=== PATIENT | female | born 1985 | race Caucasian/White ===

== ENCOUNTER 2021-07-05 09:11 | Emergency (ER) | payer BC, OTHER ==
--- NOTE | 2021-07-05 09:47 | EDM.PDOC ---
ED HPI GENERAL MEDICAL PROBLEM - General Chief Complaint: Upper Extremity Injury/Pain Stated Complaint: LT SHOULDER PAIN Time Seen by Provider: 07/05/21 09:31 Source of Information: Reports: Patient, RN Notes Reviewed - History of Present Illness INITIAL COMMENTS - FREE TEXT/NARRATIVE: 36 yr old female fell 2 or 3 days ago falling against back of L shoulder. Injured L leg as well. Leg is getting better but shoulder pain has worsened. No pain at rest but quite severe pain with certain motion, especially abduction. No neck, chest or other major discomfort at this time. - Related Data Allergies Allergy/AdvReac Type Severity Reaction Status Date / Time No Known Allergies Allergy Verified 07/05/21 09:28 Home Meds: Home Meds Naproxen [Naprosyn] 500 mg PO Q12HR #14 tab 07/05/21 [Rx] Past Medical History - Past Health History Medical/Surgical History: Denies Medical/Surgical History Social & Family History - Tobacco Use Tobacco Use Status *Q: Never Tobacco User - Recreational Drug Use Recreational Drug Use: No Review of Systems - Review of Systems Review Of Systems: See Below Constitutional: Denies: Chills, Fever Ears: Reports: No Symptoms Mouth/Throat: Reports: No Symptoms Respiratory: Denies: Shortness of Breath, Pleuritic Chest Pain Cardiovascular: Denies: Chest Pain GI/Abdominal: Denies: Abdominal Pain, Nausea, Vomiting Musculoskeletal: Reports: Shoulder Pain Skin: Reports: No Symptoms Neurological: Reports: No Symptoms ED EXAM, GENERAL - Physical Exam Exam: See Below General Appearance: Alert, No Apparent Distress Head: Atraumatic Neck: Supple Respiratory/Chest: No Respiratory Distress, Lungs Clear, Normal Breath Sounds Cardiovascular: Regular Rate, Rhythm Extremities: Other (There is tenderness L post shoulder, back and shoulder otherwise nontender, no swelling or deformity. No pain with passive motion, pain with abduction and moving L arm backward) Skin Exam: Warm, Dry, Normal Color. No: Ecchymosis Course - Vital Signs Last Recorded V/S: Last Vital Signs Temp 97 F 07/05/21 09:25 Pulse 83 07/05/21 09:25 Resp 18 07/05/21 09:25 BP 153/81 H 07/05/21 09:25 Pulse Ox 98 07/05/21 09:25 - Re-Assessments/Exams Free Text/Narrative Re-Assessment/Exam: 07/05/21 12:23 X rays not clinically indicated a this time. Discharge instr. as documented. Departure - Departure Time of Disposition: 09:45 Disposition: Home, Self-Care 01 Condition: Fair Clinical Impression: Shoulder contusion Qualifiers: Encounter type: initial encounter Laterality: left Qualified Code(s): S40.012A - Contusion of left shoulder, initial encounter - Discharge Information Prescriptions: Naproxen [Naprosyn] 500 mg PO Q12HR #14 tab Instructions: Contusion, [id number] Referrals: Blanca Zavala PA-C [Primary Care Provider] - Forms: ED Department Discharge Additional Instructions: Rest arm and shoulder. Alternate ice packs and heat as needed. Naprosyn 500 mg twice daily for pain and inflammation. Prescription has been sent to [facility] at the [facility] [employer] [facility]. Follow up clinic as needed if symptoms not resolving as expected over the next 3 to 5 days. Sepsis Event Note (ED) - Evaluation Sepsis Screening Result: No Definite Risk - Focused Exam Vital Signs: Vital Signs Temp Pulse Resp BP Pulse Ox 07/05/21 09:25 97 F 83 18 153/81 H 98
== END 2021-07-05 09:58 | disposition home or self-care (01) ==
LOC: JD.ED 09:11
DX: S40.012A Contusion of left shoulder, initial encounter (principal); W18.39XA Other fall on same level, initial encounter
CPT/HCPCS: 99283

== ENCOUNTER 2025-02-20 20:13 | Emergency (ER) | payer BC, OTHER, SELFPAY ==
[2025-02-20] MEDS: Fluorescein 1 MG Ophth Strip EYELF ONE (21:13)
[2025-02-20] MEDS: Proparacaine 0.5% Ophth Soln 15 ML Bottle EYELF ONE (21:13)
[2025-02-20] MEDS: Erythromycin Base 0.5% Ophth Oint 1 GM Tube EYELF ONE (21:48)
== END 2025-02-20 21:51 | disposition home or self-care (01) ==
LOC: JD.ED 20:13
DX: S05.02XA Injury of conjunctiva and corneal abrasion without foreign body, left eye, initial encounter (principal); Z79.899 Other long term (current) drug therapy; X58.XXXA Exposure to other specified factors, initial encounter; Y93.89 Activity, other specified
CPT/HCPCS: 99283; A9270; J3490